=== PATIENT | male | born 1945 | race Caucasian/White ===

== ENCOUNTER 2017-10-16 12:33 | Outpatient (CLI) | payer MEDICARE, OTHER | END 2017-10-16 12:34 | disposition home or self-care (01) | LOC: DI 12:33 | PROVIDERS: ATTEND Internal Medicine | DX: C83.10 Mantle cell lymphoma, unspecified site (principal); I51.7 Cardiomegaly; I77.810 Thoracic aortic ectasia | CPT/HCPCS: 93306 ==

== ENCOUNTER 2019-07-17 01:03 | Emergency (ER) | payer MEDICARE, OTHER ==
--- NOTE | 2019-07-17 01:47 | ED Physician Documentation ---
PD HPI HEENT - Stated complaint Stated Complaint: BLOODY NOSE - Chief complaint Chief Complaint: Heent - History obtained from History obtained from: Patient - History of Present Illness Timing - onset: Enter time (22:00) Timing - details: Abrupt onset, Constant Pain level now: 0 Location: Nose Improves: Nothing Recently seen: Not recently seen - Additional information Additional information: atraumatic right nare epistaxis since 10 PM. not on blood thinners, denies h/o similar problem (has had nosebleeds before but not to extent of needing medical attention) Review of Systems Constitutional: reports: Reviewed and negative Nose: reports: Epistaxis. denies: Rhinorrhea / runny nose, Congestion, Sinus pressure / pain PD PAST MEDICAL HISTORY - Past Medical History Past Medical History: Yes Cardiovascular: Hypertension, Coronary artery disease, MD Respiratory: Sleep apnea, CPAP use Endocrine/Autoimmune: Type 2 diabetes GI: None : None HEENT: None Psych: None Musculoskeletal: Osteoarthritis - Past Surgical History General: Cholecystectomy, Colonoscopy, Other Cardiovascular: Coronary stent - Present Medications Home Medications: Ambulatory Orders Medication Instructions Recorded Confirmed Aspirin [Aspir 81] 82 mg PO DAILY 06/30/13 01/25/19 Atenolol 100 mg PO DAILY 06/30/13 01/25/19 Calcium Carbonate/Vitamin D3 1 each PO DAILY 06/30/13 01/25/19 [Caltrate-600 with Vit D Tab] Glucosa Arguello 2Kcl/Chondroitin Arguello 1 each PO BID 06/30/13 01/25/19 [Glucosamine & Chondroitin Cap] Losartan [Cozaar] 100 mg PO DAILY 06/30/13 01/25/19 Metformin HCl 1,000 mg PO BID 06/30/13 01/25/19 Simvastatin [Zocor] 40 mg PO QPM 06/30/13 01/25/19 Insulin NPH Human [NovoLIN N] 17 unit SUBQ QPM 11/18/17 01/25/19 Allopurinol 100 mg PO DAILY 01/25/19 01/25/19 Mecobalamin [B-12] 1 tab PO DAILY 01/25/19 01/25/19 Multivitamin [Multiple Vitamins] 1 tab PO DAILY 01/25/19 01/25/19 Morrill-3/Dha/Epa/Fish Oil [Morrill 3 1 cap PO DAILY 01/25/19 01/25/19 500 Softgel] Tumeric 1 tab PO DAILY 01/25/19 - Allergies Allergies/Adverse Reactions: Allergies Allergy/AdvReac Type Severity Reaction Status Date / Time codeine [Codeine] AdvReac Intermediate stiff neck Verified 07/17/19 01:15 codeine phosphate * AdvReac Unknown Verified 07/17/19 01:15 [From Robitussin A-C] guaifenesin AdvReac Unknown Verified 07/17/19 01:15 [From Robitussin A-C] - Social History Does the pt smoke?: No Smoking Status: Never smoker Does the pt drink ETOH?: Yes Does the pt have substance abuse?: No - Immunizations Immunizations are current?: Yes PD ED PE NORMAL - Vitals Vital signs reviewed: Yes - General General: Alert and oriented X 3, No acute distress, Well developed/nourished PD ED PE EXPANDED - HEENT HEENT: Right nares epsitaxis ( Slow, steady bleeding from a discrete 2mm diameter raised area of mucosa right anterior nasal septum ), Moist mucous membranes Results - Vitals Vitals: Oxygen O2 Source Room air Procedures - Epistaxis Site: Right Preparation: Clots removed, Afrin, Lidocaine Treatment: Silver Nitrate Other: Observed - no bleeding, Pt tolerated well PD MEDICAL DECISION MAKING - ED course Complexity details: considered differential, d/w patient ED course: bleeding persisted despite 20 minutes of nasal clamp pressure. hemostasis achieved with chemical cautery Departure - Departure Disposition: 01 Home, Self Care Clinical Impression: Epistaxis Condition: Good Instructions: ED Nosebleed Follow-Up: Rani Valencia PA-C [Primary Care Provider] - Discharge Date/Time: 07/17/19 03:00
[2019-07-17] MEDS ORDERED: OXYMETAZOLINE HCL 100 SPRAYS BOTTLE NAS STA (01:53)
[2019-07-17] MEDS ORDERED: LIDOCAINE VISCOUS 2% 15 ML UDC MM STA (01:54)
[2019-07-17 03:00] VITALS: BP 164/94
== END 2019-07-17 03:00 | disposition home or self-care (01) ==
LOC: ED 01:03
DX: R04.0 Epistaxis (principal); I10 Essential (primary) hypertension; E11.9 Type 2 diabetes mellitus without complications; Z79.4 Long term (current) use of insulin; Z79.82 Long term (current) use of aspirin
CPT/HCPCS: 30901; 99282; A9270

== ENCOUNTER 2019-10-17 10:21 | Outpatient (CLI) | payer MEDICARE, OTHER ==
[2019-10-17] MEDS ORDERED: IOVERSOL 320 50 ML VIAL ONE (10:30)
[2019-10-17] MEDS ORDERED: IOVERSOL 320 100 ML VIAL IVP ONE ×2 (10:30→15:01)
[2019-10-17 11:34] LABS: CALCIUM 9.1 mg/dL (8.5-10.3)
[2019-10-17 11:37] LABS: ALBUMIN 3.1 g/dL (3.2-5.5); CREATININE 0.9 mg/dL (0.6-1.2)
[2019-10-17 11:42] LABS: ALBUMIN/GLOBULIN RATIO 0.8 (1.0-2.2); BILIRUBIN,TOTAL 0.9 mg/dL (0.2-1.0)
[2019-10-17] MEDS ORDERED: IOVERSOL 320 50 ML VIAL PO ONE (15:01)
--- NOTE | 2019-10-18 10:50 | CT Report ---
Reason: NUZHAT CELL CARCINOMA, NECK PAIN Procedure Date: 10/17/2019 Accession Number: [id number] / [id number] Procedure: CT - SOFT TISSUE NECK W CPT Code: Final Report FULL RESULT: CT SOFT TISSUE NECK WITH CONTRAST INDICATION: 74-year-old male. [place]uz[place] cell carcinoma. Neck pain. Left axillary lymphadenopathy. TECHNIQUE: 100 mL of Optiray 320 contrast were injected intravenously. The neck was scanned helically and the data was reconstructed into 2 mm axial images. In addition, sagittal and coronal re-formations have been generated. In accordance with CT protocol optimization, one or more of the following dose reduction techniques were utilized for this exam: automated exposure control, adjustment of mA and/or KV based on patient size, or use of iterative reconstructive technique. COMPARISON: 07/19/2019. FINDINGS: Postsurgical changes are again demonstrated in the left neck. There is absence of fat in the carotid space, deep to the sternocleidomastoid muscle suggesting previous neck dissection. The left submandibular gland is surgically absent. In addition, once again, no left internal jugular vein is identified in the upper and mid neck, suggesting that it was likely sacrificed at the time of prior surgery. A lymph node in the left axilla is again demonstrated, measuring about 1.55 x 1 cm, slightly increased from about 1.45 x 0.9 cm on the previous examination (see image 113 of series 2). No lymph nodes meeting the size criterion for malignancy are identified within the neck. The nasopharyngeal and oropharyngeal soft tissues are unremarkable. The oral tongue is obscured due to extensive beam hardening artifact from metal dental hardware. Grossly no mass is identified. No floor of mouth or tongue base lesion is demonstrated. There is paramedian displacement of both vocal folds, presumably related to phase of phonation or respiration. No laryngeal mass is identified. The imaged upper trachea is widely patent. Beam hardening artifact from the shoulders limits evaluation of the thyroid. However, there is no thyromegaly, and no dominant thyroid mass lesion is demonstrated. The right submandibular gland is small but homogeneous. The left parotid gland is small (suggesting probable previous parotidectomy). The right parotid gland is fatty replaced and unremarkable. The carotid and vertebral arteries are patent. The right internal jugular vein appears patent. For findings in the included upper chest, please refer to the report for the patient's chest CT performed at same visit but dictated separately. Degenerative changes are again demonstrated in the cervical spine. 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 The mid sagittal canal diameter is reduced to about 8.8 mm. This probably represents at least mild spinal stenosis. The regional bony structures are otherwise unremarkable. No lytic or destructive bone lesion is seen. The middle ear cavities and mastoid air cells are essentially clear. Mucosal thickening is seen in the inferior left maxillary sinus and in multiple ethmoid air cells. The imaged paranasal sinuses are otherwise clear. No mass is identified in either orbit. No obvious acute pathology is seen in the imaged brain. IMPRESSION: 1. A lymph node in the left axilla has shown mild interval increase in size when compared to the previous examination of 07/19/2019. 2. Otherwise stable appearance of the neck when compared with the study from July 2019. In particular, no pathologic lymphadenopathy has developed within the neck.
--- NOTE | 2019-10-18 12:52 | CT Report ---
Reason: NUZHAT CELL CA W/ LT AXILLARY LYMPHADENOPATHY Procedure Date: 10/17/2019 Accession Number: [id number] / [id number] Procedure: CT - CHEST W CPT Code: Final Report FULL RESULT: EXAM: CT CHEST EXAM DATE: 10/17/2019 11:44 AM. CLINICAL HISTORY: Nuzhat cell cancer with left axillary lymphadenopathy. Neck pain. Epigastric pain. COMPARISONS: CHEST W07/19/2019 12:17 PM ABDOMEN/PELVIS W07/15/2018 11:18 AM CHEST W01/18/2019 9:07 AM. TECHNIQUE: Routine helical CT imaging was performed through the chest. IV contrast: 100 mL of Optiray 320. Reconstructions: Coronal and sagittal. In accordance with CT protocol optimization, one or more of the following dose reduction techniques were utilized for this exam: automated exposure control, adjustment of mA and/or KV based on patient size, or use of iterative reconstructive technique. FINDINGS: Lungs/Pleura: No endobronchial obstruction. No pleural effusions. No pneumothorax. Right middle lobe, lingular and bilateral lower lobe scar/atelectasis. Mild bilateral bronchial dilatation particularly in the lower lobes. No pleural effusions or pneumothorax. Calcified nodule inferior right lower lobe again seen. Subpleural right lower lobe nodular measuring 4 mm on image 186, series 3, stable. No new nodules. Mediastinum: Heart is upper normal in size. Coronary artery calcified plaque. Small hiatal hernia. No enlarged mediastinal or hilar lymph nodes are identified. No inferior cervical adenopathy is evident. Bones: Degenerative changes of the thoracic spine. No acute osseous abnormalities. No bony lesions. Visualized Abdomen: Absent gallbladder. Prominent common bile duct again seen. Pancreatic tail volume loss again evident. Adrenals and included portions of the kidneys are unremarkable. Stomach is mild to moderately distended. Diverticula are seen in differing portions of the colon. Other: Surgical clips are seen in the left axilla. Low-attenuation collection is again seen measuring approximately 4.5 x 3.3 cm as before in the left atrial. In the left axilla there has been a slight increase in size of the largest lymph nodes seen best on axial image 17 series 2 now measuring approximately 11 x 8 mm, previously measured up to 8 x 6 mm, as well as the adjacent lymph node seen on image 17 series 2 and image 21 series 2 which measures 7 x 5 mm also slightly larger. IMPRESSION: 1. Left axillary low attenuation 4.5 cm collection, unchanged likely postoperative and may represent a seroma. 2. Slight increase in size of left axillary lymph nodes. The largest lymph node now measures approximately 11 x 8 mm. 3. No enlarged or new mediastinal or hilar lymph nodes. 4. Right lower lobe subpleural nodular opacity 4 mm, stable. No new parenchymal nodules. 5. Borderline cardiomegaly. Coronary atherosclerosis. RADIA
--- NOTE | 2019-10-18 13:04 | CT Report ---
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 CLINICAL HISTORY: [place] cell cancer w/left axillary lymphadenopathy. Neck pain. Epigastric pain. COMPARISONS: ABDOMEN/PELVIS W/ 07/15/2018 11:18 AM. ABDOMEN/PELVIS W/ 07/19/2019 12:17 PM. ABDOMEN/PELVIS W/ 01/18/2019 9:07 AM. TECHNIQUE: Routine helical CT imaging was performed through the abdomen and pelvis. IV contrast: OPTIRAY 320; 100 mL. Enteric contrast: Positive. Reconstructions: Coronal and sagittal. In accordance with CT protocol optimization, one or more of the following dose reduction techniques were utilized for this exam: automated exposure control, adjustment of mA and/or KV based on patient size, or use of iterative reconstructive technique. FINDINGS: Lung Bases: Right lower lung nodular opacity is stable. Basilar scar/atelectasis. Hiatal hernia again seen. Liver: No hepatic lesions. Mild prominence of the intrahepatic bile ducts, unchanged. Gallbladder/Bile Ducts: Status post cholecystectomy. Prominent common bile duct again seen, stable. Spleen: Normal. Pancreas: Mild focal volume loss of the pancreatic tail is again seen. No pancreatic ductal dilatation or peripancreatic edema. Adrenal Glands: Nodule medial right adrenal gland again seen measuring 1.4 x 1.1 cm, previously measured by my measurement 1.2 x 1 cm on 07/19/2019 and on 01/18/2019 1.4 x 1.2 cm. Overall size not significantly changed. Left adrenal gland is unremarkable. Kidneys: Kidneys enhance symmetrically. Bilateral renal lesions are seen, with the largest lesion arising from the lower pole of the left kidney measuring 3.7 cm. Lateral lower pole left renal heterogeneous lesion is seen measuring 1.8 x 1.5 cm and is similar in size compared to the prior studies, although the lesion remains indeterminate. No hydronephrosis or nephrolithiasis. Peritoneal Cavity/Bowel: Stomach is mildly distended and unremarkable. No small bowel obstruction or small bowel wall thickening. No free air. No omental masses. Cecum is in the right mid abdomen. Small volume of stool in the colon. Diverticula are seen largely in the mid distal colon. No diverticulitis. No free air. No free fluid. No enlarged retroperitoneal or mesenteric lymph nodes are identified. No intra-abdominal fluid collections. The appendix is well visualized and normal. Pelvic Organs: Urinary bladder is mildly distended and unremarkable. Prostate and seminal vesicles unremarkable. No pelvic adenopathy. Vasculature: Vascular calcifications. No aneurysm. Mesenteric vasculature is patent. Bones: Degenerative change in the lower thoracic and lumbar spine. Lumbar facet arthropathy. No osseous lesions. Degenerative changes of both hip joints. Other: None. IMPRESSION: 1. No hepatic lesions. 2. Status post cholecystectomy. Biliary prominence, unchanged. 3. Stable right adrenal nodule. 4. Renal cysts including a heterogeneous left renal 1.8 cm lesion without significant change in size or appearance. 5. No abdominal or pelvic adenopathy. 6. Colonic diverticulosis. No diverticulitis. No bowel obstruction. No bowel wall thickening. RADIA
== END 2019-10-17 10:22 | disposition home or self-care (01) ==
LOC: DI 10:21
PROVIDERS: ATTEND Physician Assistant Medical
DX: C4A.30 Merkel cell carcinoma of unspecified part of face (principal); R59.0 Localized enlarged lymph nodes; M54.2 Cervicalgia; R10.13 Epigastric pain; E27.9 Disorder of adrenal gland, unspecified; Q61.02 Congenital multiple renal cysts; N28.9 Disorder of kidney and ureter, unspecified; K57.30 Diverticulosis of large intestine without perforation or abscess without bleeding; Z90.49 Acquired absence of other specified parts of digestive tract; I51.7 Cardiomegaly; R91.1 Solitary pulmonary nodule
CPT/HCPCS: 36415; 70491; 71260; 74177; 80053; Q9967

== ENCOUNTER 2020-10-21 10:37 | Outpatient (CLI) | payer MEDICARE, OTHER ==
--- NOTE | 2020-10-21 12:34 | SLEEP CARE CONSULTATION ---
Information from patient questionnaire entered by Michaelle Neff. I have reviewed and concur with the information entered by Michaelle Neff. This document represents the service I personally performed and the decisions made by me, Yazmin Li MD, [facility]. History of Present Illness Service Date and Time: 10/21/2020 1037 Reason for Visit: New patient, Previously diagnosed sleep apnea (Extremely Severe - AHI - 102.6), sleep apnea on CPAP therapy (using [employer]), Re-establish care (last seen 01/2011) Chief Complaint: reports: Other (new machine and supplies) Date of Onset: 1999 Usual bedtime: 10 pm Time it takes to fall asleep: 3 hours Snores at night: No Observed to quit breathing while asleep: No Sleeps alone due to snoring: No Number of times waking at night: 3-4 Reasons for waking at night: reports: Bathroom Toss, Turn, or Twitch while sleeping: Yes Recalls having dreams: No Usually gets out of bed at: 10-11 am Feels refreshed in the morning: Yes Morning headache: No Sleepy or fatigued during the day: No Ever fallen asleep while driving: No Takes day naps: No Dreams during day naps: No Prior sleep studies: Yes Year and Where: 2001 - [facility] in [place], [place] Additional HPI information: I had the pleasure of seeing Mr. Chu for re-evaluation of his sleep apnea. He was diagnosed in April 2002 at [facility] in [place], [place]. He was diagnosed with extremely severe apnea with an AHI of 102.6 and was placed on CPAP at 9 cm H2O pressure. He had a manual CPAP/BiPAP titration study here in 2009 that showed pressure of 11 cmH2O to be optimal. He was last seen here in 2010. Since then, he has been using his CPAP regularly. He wears the ResMed Alas FX nasal pillows. He got a new Respironics DreamStation in 2016 from [employer] (not sure who ordered it for him). The compliance data show usage in 364 out of the past 365 nights, averaging 7.5 hours a night. The residual AHI is 9.1 and average time in large leak per day is 48 minutes a night. Leak is worse the past few months, most likely due to old equipment. He lost 60 lbs since I saw him last. - Parasomnia Symptoms Ever been unable to move upon waking from sleep: No Ever felt weak in the knees when startled or emotional: No Bothered by creepy, crawly, restless sensations in legs: No Problems with memory or concentration: No CPAP Compliance Data - Data Reviewed with Patient Average duration of nightly device use: 7 hr 48 min Compliance rate %: 95.6 (180 days) Current pressure setting (cmH2O): 11 Humidity settin Heated hose settin Average residual AHI: 8.9 Average large leak: 1 hr 18 min Subjective Initial Davidson Sleepiness Scale score: 1 (in 2009) Current Davidson Sleepiness Scale score: 0 Past Medical History Past Medical History: reports: Diabetes, Arthritis, Gout Social History The patient's occupation is a Retired. Patient is and lives in [place]. Have you smoked in the past 12 months: No Alcohol use: No Caffeine use: No Family History Family history of sleep disordered breathing: No Allergies and Home Medications Drug allergies reviewed: Yes Home medication list reviewed: Yes Review of Systems Weight loss over past 5 years: 60 Cardiovascular: reports: high blood pressure Respiratory: denies: shortness of breath, wheeze, sputum production, chronic cough, other Gastrointestinal: denies: heartburn, difficulty swallowing, nausea, vomitting, diarrhea, abdominal pain, other Urinary: denies: incontinence, frequency, urgency, impotence, other Neurological: denies: headaches, seizure, head trauma, disorientation, speech dysfunction, gait or balance problems, fainting or unconsciousness, other Psychiatric: denies: Attention Deficit Hyperactivity, anxiety, depression, mood disorder, claustrophobia, other Ear/Nose/Throat: reports: dry mouth/throat, wisdom teeth removed Musculoskeletal: reports: joint pain Physical Exam Vital signs obtained and entered by: To minimize the risk of COVID-19 exposure, detailed exam was not performed. Height: 5 ft 11 in Weight: 225 lb Weight change since last visit: -58 Body Mass Index: 31.4 BMI Classification: Obese Impression and Plan IMPRESSION: 1. Obstructive Sleep Apnea-Hypopnea Syndrome, very severe, previously diagnosed. He has had good treatment compliance despite not having had any new supplies for a while. The weight loss could have improved his sleep-disordered breathing. I recommend repeating the in-laboratory polysomnography to see if he still has the condition. In the meantime, I will order him more supplies. Also, because the residual AHI is slightly high, I will change his machine from a straight CPAP to autoCPAP set between 9 and 13 cmH2O. Plan: 1. Schedule an in-laboratory polysomnography or a home sleep apnea test (HSAT) 2. Set autoCPAP at 9 13 cmH2O. 3. Prescription made for supplies. 4. Attempt to lose more weight. 5. Return in 1 to 2 weeks after the test to discuss results. Visit Type: In Office Provider Statement: I spent 100% of the Face to Face Visit with the patient with greater than 50% spent counseling the patient and coordination of care.
== END 2020-10-21 10:38 | disposition home or self-care (01) ==
LOC: SC 10:37
PROVIDERS: ATTEND Internal Medicine Pulmonary Disease
DX: G47.33 Obstructive sleep apnea (adult) (pediatric) (principal); E66.9 Obesity, unspecified; Z68.31 Body mass index [BMI] 31.0-31.9, adult
CPT/HCPCS: 99202; G0463; 99212

== ENCOUNTER 2020-10-22 09:49 | Outpatient (CLI) | payer MEDICARE, OTHER | END 2020-10-22 09:50 | disposition home or self-care (01) | LOC: SC 09:49 | PROVIDERS: ATTEND Internal Medicine Pulmonary Disease | DX: G47.33 Obstructive sleep apnea (adult) (pediatric) (principal); R09.02 Hypoxemia | CPT/HCPCS: G0399 ×2; 95806 ==

== ENCOUNTER 2020-10-29 14:35 | Outpatient (CLI) | payer MEDICARE, OTHER ==
--- NOTE | 2020-10-29 15:25 | SLEEP CARE CONSULTATION ---
Information from patient questionnaire entered by Guillermina Garcia. I have reviewed and concur with the information entered by Guillermina Garcia. This document represents the service I personally performed and the decisions made by , Aurea Sepulveda ARNP. History of Present Illness Service Date and Time: 10/29/2020 1435 Initial Coram Sleepiness Scale score: 1 (in 2020) Current Coram Sleepiness Scale score: 0 Additional HPI information: ALFREDITO MCMANUS returns for follow up and results of the recently performed home sleep study. His home sleep study verified that he has moderate obstructive sleep apnea with an average AHI of 20.7 and lisa oxygen saturation of 85%. Patient is doing well with the change in pressure from his last appointment. He is using the CPAP for 7 hours 47 minutes on average, 86.7% of the time. His average residual AHI is 4.8. He states the pressure feels comfortable and he denies any issues with the mask or the pressure at this time. Sleep Study - Results Type of Sleep Study: Home sleep study Prior sleep studies: Yes Polysomnography/Home Sleep Study results: Physician Impression: The quality of the study is good. The length of the study is adequate (> 240 minutes). Please also see the tabulated and graphic data. 1. Obstructive Sleep Apnea-Hypopnea (ICD-10 G47.33), moderate, with an AHI of 20.7/hr and lisa SaO2 of 85%. During the study, the patient had 59 apneas (59 obstructive, 0 central, 0 mixed) and 106 hypopneas. The longest episode lasted 55.5 seconds. The respiratory events occurred more frequently during supine sleep (supine AHI was 28.0 and non-supine, 15.93). 2. Hypoxemia (ICD-10 R09.02), mild, with the lowest oxygen saturation of 85 % and 174.7 minutes with SaO2 under 90%. Baseline oxygen saturation was normal (Average oxygen saturation was 91%). Allergies and Home Medications Home medication list reviewed: Yes (no changes) Review of Systems Review of systems same as previous: Yes (no changes) Physical Exam Heart Rate: 63 O2 Saturation: 97 Height: 5 ft 11 in Weight: 231 lb Body Mass Index: 32.2 BMI Classification: Obese Impression and Plan 1. Obstructive Sleep Apnea-Hypopnea Syndrome, moderate, with lowest oxygen saturation of 85%. He has good compliance and good apnea control at his current settings. He states he has overall more restful sleep and good quality sleep on CPAP therapy. He has a previous diagnosis of very severe GABY with CPAP use and was retested due to weight loss. His test shows he still qualifies for CPAP therapy. Positive pressure therapy can continue to benefit his diabetes and gout. He is doing well with the pressure change and has no complaints. He may replace his machine in May and patient will probably follow up then to do this. Otherwise an annual follow up is fine. * Continue auto CPAP pressure at 9-13 cmH2O * Notify me if snoring with mask or feeling that the pressure is too much or too little * Attempt to lose weight * Call this office if any problems using CPAP * Return for follow up in 1 year, or sooner if concerns arise Counseling Topics: Weight loss health impact Visit Type: In Office Time Spent with Patient (minutes): 15 Provider Statement: I spent 100% of the Face to Face Visit with the patient with greater than 50% spent counseling the patient and coordination of care.
== END 2020-10-29 14:36 | disposition home or self-care (01) ==
LOC: SC 14:35
PROVIDERS: ATTEND Nurse Practitioner Family
DX: G47.33 Obstructive sleep apnea (adult) (pediatric) (principal); E66.9 Obesity, unspecified; Z68.32 Body mass index [BMI] 32.0-32.9, adult
CPT/HCPCS: 99212; G0463

== ENCOUNTER 2022-01-21 09:10 | Emergency (ER) | payer MEDICARE, OTHER ==
--- NOTE | 2022-01-21 09:33 | ED Physician Documentation ---
PD HPI CHEST PAIN - Stated complaint Stated Complaint: CHEST PX,SOA - Chief complaint Chief Complaint: Cardiac - History obtained from History obtained from: Patient - History of Present Illness Timing - onset: How many days ago (3-4) Timing - onset during: Sleep (he has noted mainly when lying flat, a feeling of dyspnea and chest heaviness. SOme dyspnea with walking around but is minimally active at baseline.) Timing - duration: Days Timing - details: Gradual onset, Still present Quality: Tightness Location: Substernal Radiation: No: Jaw, Neck, Back Improved by: Rest (sitting up) Worsened by: Position (lying flat) Associated symptoms: Shortness of air, Other (increased bilateral leg edema more than usual the past week.). No: Nausea, Vomiting, Feeling faint / dizzy Similar symptoms before: Has not had sx before Recently seen: Not recently seen Review of Systems Constitutional: denies: Fever, Chills Nose: denies: Rhinorrhea / runny nose, Congestion Throat: denies: Sore throat Cardiac: reports: Pedal edema. denies: Calf pain Respiratory: reports: Dyspnea. denies: Cough GI: denies: Abdominal Pain, Nausea, Vomiting, Diarrhea, Bloody / black stool Musculoskeletal: reports: Extremity swelling Neurologic: reports: Generalized weakness. denies: Focal weakness, Numbness PD PAST MEDICAL HISTORY - Past Medical History Past Medical History: Yes Cardiovascular: Hypertension, Coronary artery disease (with stent about 15 years ago), [place] Respiratory: Sleep apnea, CPAP use Endocrine/Autoimmune: Type 2 diabetes GI: None : None HEENT: None Psych: None Musculoskeletal: Osteoarthritis - Past Surgical History General: Cholecystectomy, Colonoscopy, Other Cardiovascular: Coronary stent - Present Medications Home Medications: Ambulatory Orders Medication Instructions Recorded Confirmed Atenolol 100 mg PO DAILY 06/30/13 01/21/22 Calcium Carbonate/Vitamin D3 1 each PO DAILY 06/30/13 01/21/22 [Caltrate-600 with Vit D Tab] Glucosa Arguello 2Kcl/Chondroitin Arguello 1 each PO BID 06/30/13 01/21/22 [Glucosamine & Chondroitin Cap] Losartan [Cozaar] 100 mg PO DAILY 06/30/13 01/21/22 Metformin HCl 1,000 mg PO BID 06/30/13 01/21/22 Simvastatin [Zocor] 40 mg PO QPM 06/30/13 01/21/22 Insulin NPH Human [NovoLIN N] 17 unit SUBQ QPM 11/18/17 01/21/22 Mecobalamin [B-12] 1 tab PO DAILY 01/25/19 01/21/22 Multivitamin [Multiple Vitamins] 1 tab PO DAILY 01/25/19 01/21/22 [place]-3/Dha/Epa/Fish Oil [[place] 3 1 cap PO DAILY 01/25/19 01/21/22 500 Softgel] allopurinoL [Allopurinol] 100 mg PO DAILY 01/25/19 01/21/22 Iron 65 Mg 65 mg PO DAILY 05/15/20 01/21/22 Furosemide [Lasix] 40 mg PO DAILY 10 Days #10 tablet 01/21/22 Magnesium Oxide [Mag Ox] 400 mg PO DAILY 14 Days #14 tablet 01/21/22 Oxybutynin [Ditropan] 5 mg PO BID 01/21/22 01/21/22 Potassium Citrate [Potassium 15 meq PO DAILY 14 Days #14 tab 01/21/22 Citrate ER] - Allergies Allergies/Adverse Reactions: Allergies Allergy/AdvReac Type Severity Reaction Status Date / Time codeine [Codeine] AdvReac Intermediate stiff neck Verified 01/21/22 09:30 codeine phosphate * AdvReac Unknown Verified 01/21/22 09:30 [From Robitussin A-C] guaifenesin AdvReac Unknown Verified 01/21/22 09:30 [From Robitussin A-C] - Social History Does the pt smoke?: No Smoking Status: Never smoker Does the pt drink ETOH?: Yes Does the pt have substance abuse?: No - Immunizations Immunizations are current?: Yes PD ED PE NORMAL - Vitals Vital signs reviewed: Yes - General General: Alert and oriented X 3, No acute distress, Well developed/nourished - HEENT HEENT: Pharynx benign - Neck Neck: Supple, no meningeal sign, No adenopathy - Cardiac Cardiac: RRR, No murmur - Respiratory Respiratory: No respiratory distress. No: Clear bilaterally (fine crackles at bases bilaterally. No coarse sounds nor wheezing. ) - Abdomen Abdomen: Normal bowel sounds, Soft, Non tender - Derm Derm: Normal color, Warm and dry - Extremities Extremities: No calf tenderness / cord, Other (1-2+ pitting edema in both lower legs, up to upper shins. ) - Neuro Neuro: Alert and oriented X 3, No motor deficit, Normal speech Results - Vitals Vitals: Vital Signs - 24 hr 01/21/22 01/21/22 01/21/22 09:26 10:06 10:32 Temperature 36.4 C L Heart Rate 69 62 65 Respiratory 26 H 24 26 H Rate Blood Pressure 181/116 H 173/109 H 166/115 H O2 Saturation 100 97 93 01/21/22 11:22 Temperature Heart Rate 62 Respiratory 27 H Rate Blood Pressure 172/106 H O2 Saturation 91 L Oxygen O2 Source Room air - EKG (time done) 09:28 Rate: Rate (enter#) (68) Rhythm: NSR [place]: LAD Intervals: LBBB Ischemia: Normal ST segments, Non specific changes - Labs Labs: Laboratory Tests 01/21/22 01/21/22 01/21/22 09:25 09:25 09:25 WBC 7.5 RBC 4.33 L Hgb 13.0 L Hct 42.4 MCV 97.9 H MCH 30.0 MCHC 30.7 L RDW 15.1 H Plt Count 164 MPV 10.1 Neut # (Auto) 5.7 Lymph # (Auto) 0.9 L [place] # (Auto) 0.7 Eos # (Auto) 0.2 Baso # (Auto) 0.1 Absolute Nucleated RBC 0.00 Nucleated RBC % 0.0 Sodium 143 Potassium 3.7 Chloride 105 Carbon Dioxide 27 Anion Gap 11.0 BUN 30 H Creatinine 1.5 H Estimated GFR (MDRD) 45 L Glucose 109 H POC Whole Bld Glucose Calcium 9.0 Magnesium Total Bilirubin 1.3 H AST 34 ALT 34 Alkaline Phosphatase 71 Troponin I High Sens 31.2 H* B-Natriuretic Peptide Total Protein 6.6 L Albumin 3.7 Globulin 2.9 Albumin/Globulin Ratio 1.3 Lipase 38 01/21/22 01/21/22 01/21/22 09:25 09:25 11:12 WBC RBC Hgb Hct MCV MCH MCHC RDW Plt Count MPV Neut # (Auto) Lymph # (Auto) [place] # (Auto) Eos # (Auto) Baso # (Auto) Absolute Nucleated RBC Nucleated RBC % Sodium Potassium Chloride Carbon Dioxide Anion Gap BUN Creatinine Estimated GFR (MDRD) Glucose POC Whole Bld Glucose Calcium Magnesium 1.4 L Total Bilirubin AST ALT Alkaline Phosphatase Troponin I High Sens 29.1 H* B-Natriuretic Peptide 3851 H Total Protein Albumin Globulin Albumin/Globulin Ratio Lipase 01/21/22 11:54 WBC RBC Hgb Hct MCV MCH MCHC RDW Plt Count MPV Neut # (Auto) Lymph # (Auto) [place] # (Auto) Eos # (Auto) Baso # (Auto) Absolute Nucleated RBC Nucleated RBC % Sodium Potassium Chloride Carbon Dioxide Anion Gap BUN Creatinine Estimated GFR (MDRD) Glucose POC Whole Bld Glucose 105 H Calcium Magnesium Total Bilirubin AST ALT Alkaline Phosphatase Troponin I High Sens B-Natriuretic Peptide Total Protein Albumin Globulin Albumin/Globulin Ratio Lipase - Rads (name of study) chest xray Radiology: Prelim report reviewed (enlarghed heart size. NO acute pulmonary process.), See rad report PD MEDICAL DECISION MAKING - ED course Complexity details: reviewed results, re-evaluated patient (BP still is somewhat elevated but not excessive. HE states his breathing feels improved. HAs had reasonable amount of response to diuretic, with urine out.DOes not appear to meet admission criteria. ), considered differential (seems likely CHF with known prior CAD. NO chest pain per se. Has leg edema, crackles at bases, and elevated BNP. ), d/w patient Departure - Departure Disposition: Home, Self Care Clinical Impression: Dyspnea Qualifiers: Dyspnea type: orthopnea Qualified Code(s): R06.01 - Orthopnea CHF (congestive heart failure) Qualifiers: Heart failure type: diastolic Heart failure chronicity: unspecified Qualified Code(s): I50.30 - Unspecified diastolic (congestive) heart failure Condition: Stable Record reviewed to determine appropriate education?: Yes Instructions: ED CHF General Follow-Up: Yonny Desai DO [Primary Care Provider] - Prescriptions: Furosemide [Lasix] 40 mg PO DAILY 10 Days #10 tablet Magnesium Oxide [Mag Ox] 400 mg PO DAILY 14 Days #14 tablet Potassium Citrate [Potassium Citrate ER] 15 meq PO DAILY 14 Days #14 tab Comments: It does look like you have extra fluid in your system (fluid overload or congestive heart failure). I think that accounts for your swelling in the legs as well as the trouble breathing laying down. No signs of heart attack causing this. I would treat this with the diuretic furosemide daily for the next 10 days and see how much better you are doing over the next few days. Your electrolytes were slightly off as well so I would add a magnesium and potassium supplement over the next 10 to 14 days. I would suggest following up with your primary care in the next week, call for an appointment. Recheck if not improved well over the next 2 to 3 days and return if worsening generally. Your primary care will want to recheck your electrolytes and kidney function somewhere in the next week to ensure they are doing okay. I sent your prescriptions to the [facility] pharmacy. Discharge Date/Time: 01/21/22 12:03
[2022-01-21 09:36] LABS: BASOPHILS # (AUTO) 0.1 10^3/uL (0.0-0.1); BASOPHILS % (AUTO) 0.8 %; EOSINOPHILS # (AUTO) 0.2 10^3/uL (0.0-0.7); EOSINOPHILS % (AUTO) 2.9 %; HCT - HEMATOCRIT 42.4 % (42.0-52.0); LYMPHOCYTES # (AUTO) 0.9 10^3/uL (1.5-3.5); LYMPHOCYTES % (AUTO) 11.9 %; MEAN CORPUSCULAR HGB CONC 30.7 g/dL (32.0-36.0); MEAN CORPUSCULAR VOLUME 97.9 fL (80.0-94.0); MEAN PLATELET VOLUME 10.1 fL (7.4-11.4); MONOCYTES # (AUTO) 0.7 10^3/uL (0.0-1.0); MONOCYTES % (AUTO) 8.8 %; NEUTROPHILS # (AUTO) 5.7 10^3/uL (1.5-6.6); NEUTROPHILS % (AUTO) 75.3 %; PLT - PLATELET COUNT 164 10^3/uL (130-450); RED BLOOD COUNT 4.33 10^6/uL (4.70-6.10); RED CELL DISTRIBUTION WIDTH 15.1 % (12.0-15.0); WHITE BLOOD COUNT 7.5 x10^3/uL (4.8-10.8)
[2022-01-21 09:55] LABS: ALBUMIN 3.7 g/dL (3.2-5.5); ALBUMIN/GLOBULIN RATIO 1.3 (1.0-2.2); BILIRUBIN,TOTAL 1.3 mg/dL (0.2-1.0); CREATININE 1.5 mg/dL (0.6-1.2); POTASSIUM 3.7 mmol/L (3.5-5.0); TOTAL PROTEIN 6.6 g/dL (6.7-8.2)
--- NOTE | 2022-01-21 09:56 | XRAY Report ---
PROCEDURE: Chest 1 View X-Ray INDICATIONS: Chest pain TECHNIQUE: One view of the chest was acquired. COMPARISON: CT chest 01/22/2020 FINDINGS: Surgical changes and devices: None. Lungs and pleura: No pleural effusions or pneumothorax. Lungs are clear. Mediastinum: Mediastinal contours appear normal. Heart size is enlarged. Bones and chest wall: No suspicious bony lesions. Overlying soft tissues appear unremarkable. IMPRESSION: No acute pulmonary process. Reviewed by: Charity Rodgers MD on 01/21/2022 9:54 AM PDT Approved by: Charity Rodgers MD on 01/21/2022 9:54 AM PDT Station ID: [id number]
[2022-01-21] MEDS ORDERED: FUROSEMIDE 40 MG/4 ML VIAL IVP STA ×2 (10:03→11:05)
[2022-01-21] MEDS ORDERED: POTASSIUM CHLORIDE 20 MEQ TABLET PO STA (10:04)
[2022-01-21] MEDS ORDERED: MAGNESIUM SULFATE 2 GRAM 2 GM/50 ML BAG IV ONE (10:04)
[2022-01-21] MEDS ORDERED: NITROGLYCERIN SL 0.4 MG TABLET SL STA (11:05)
[2022-01-21 11:24] VITALS: BP 172/106
== END 2022-01-21 12:03 | disposition home or self-care (01) ==
LOC: ED 09:10
DX: R06.01 Orthopnea (principal); I50.30 Unspecified diastolic (congestive) heart failure; I11.0 Hypertensive heart disease with heart failure; E11.9 Type 2 diabetes mellitus without complications; Z79.4 Long term (current) use of insulin
CPT/HCPCS: 36415; 71045; 80053; 83690; 83735; 83880; 84484; 85025; 93005; 96365; 96375; 96376; 99284; A9270

== ENCOUNTER 2022-07-23 12:49 | Outpatient (CLI) | payer MEDICARE, OTHER ==
[2022-07-23 13:02] LABS: BASOPHILS # (AUTO) 0.1 10^3/uL (0.0-0.1); BASOPHILS % (AUTO) 0.8 %; EOSINOPHILS # (AUTO) 0.4 10^3/uL (0.0-0.7); EOSINOPHILS % (AUTO) 4.4 %; HCT - HEMATOCRIT 42.2 % (42.0-52.0); HGB - HEMOGLOBIN 12.8 g/dL (14.0-18.0); LYMPHOCYTES # (AUTO) 0.8 10^3/uL (1.5-3.5); LYMPHOCYTES % (AUTO) 8.4 %; MEAN CORPUSCULAR HEMOGLOBIN 29.9 pg (27.0-31.0); MEAN CORPUSCULAR HGB CONC 30.3 g/dL (32.0-36.0); MEAN CORPUSCULAR VOLUME 98.6 fL (80.0-94.0); MEAN PLATELET VOLUME 9.2 fL (7.4-11.4); MONOCYTES # (AUTO) 0.7 10^3/uL (0.0-1.0); MONOCYTES % (AUTO) 7.1 %; NEUTROPHILS # (AUTO) 7.2 10^3/uL (1.5-6.6); PLT - PLATELET COUNT 170 10^3/uL (130-450); RED BLOOD COUNT 4.28 10^6/uL (4.70-6.10); RED CELL DISTRIBUTION WIDTH 15.2 % (12.0-15.0); WHITE BLOOD COUNT 9.1 x10^3/uL (4.8-10.8)
[2022-07-23 13:08] LABS: INR 1.1 (0.8-1.2); PT - PROTHROMBIN TIME 12.4 secs (9.9-12.6)
[2022-07-23 13:15] LABS: CALCIUM 9.6 mg/dL (8.5-10.3); CREATININE 1.2 mg/dL (0.6-1.2); POTASSIUM 4.4 mmol/L (3.5-5.0)
[2022-07-23 13:34] LABS: THYROID STIMULATING HORMONE 3.1 uIU/mL (0.34-5.60)
== END 2022-07-23 12:50 | disposition home or self-care (01) ==
LOC: LAB 12:49
PROVIDERS: ATTEND Internal Medicine Cardiovascular Disease
DX: I10 Essential (primary) hypertension (principal)
CPT/HCPCS: 36415; 80048; 84439; 84443; 85025; 85610

== ENCOUNTER 2022-12-07 10:15 | Outpatient (CLI) | payer MEDICARE, OTHER ==
[2022-12-07 11:20] LABS: CALCIUM 9.1 mg/dL (8.5-10.3); CREATININE 1.1 mg/dL (0.6-1.2)
[2022-12-09 14:08] LABS: KAPPA FREE LT CHAINS SERUM 65.3 mg/L (3.3-19.4); KAPPA/LAMBDA RATIO SERUM 1.57 (0.26-1.65); LAMBDA FREE LT CHAINS SERUM 41.6 mg/L (5.7-26.3)
[2022-12-09 17:08] LABS: ALBUMIN 3.1 g/dL (2.9-4.4); ALPHA-1-GLOBULIN 0.3 g/dL (0.0-0.4); BETA GLOBULIN 0.9 g/dL (0.7-1.3); GAMMA GLOBULIN 1.1 g/dL (0.4-1.8); GLOBULIN, TOTAL 3.2 g/dL (2.2-3.9); PROTEIN TOTAL 6.3 g/dL (6.0-8.5)
== END 2022-12-07 10:16 | disposition home or self-care (01) ==
LOC: LAB 10:15
PROVIDERS: ATTEND Internal Medicine Cardiovascular Disease
DX: I50.22 Chronic systolic (congestive) heart failure (principal)
CPT/HCPCS: 36415; 80048; 83521; 84155; 84165

== ENCOUNTER 2022-12-11 09:26 | Outpatient (CLI) | payer MEDICARE, OTHER ==
[2022-12-11 09:56] LABS: BILIRUBIN,URINE NEGATIVE (NEGATIVE); GLUCOSE, URINE (UA) NEGATIVE (NEGATIVE); KETONES,URINE (UA) NEGATIVE (NEGATIVE); LEUKOCYTE ESTERASE, URINE NEGATIVE (NEGATIVE); NITRITE,URINE NEGATIVE (NEGATIVE); OCCULT BLOOD,URINE NEGATIVE (NEGATIVE); PROTEIN,URINE 100 mg/dL (NEGATIVE); UROBILINOGEN,URINE 0.2 (NORMAL) E.U./dL (NORMAL)
[2022-12-11 10:03] LABS: CLARITY,URINE CLEAR (CLEAR)
[2022-12-11 10:07] LABS: CREATININE 1.1 mg/dL (0.6-1.2)
[2022-12-11 10:14] LABS: CALCIUM 9.2 mg/dL (8.5-10.3); POTASSIUM 3.9 mmol/L (3.5-5.0)
[2022-12-11 10:16] LABS: BACTERIA,URINE Few /HPF (None Seen); RBC,URINE 0-5 /HPF (0-5); SQUAMOUS EPITHELIAL CELL,UR FEW Squamous (<= Few); WBC,URINE 0-3 /HPF (0-3)
[2022-12-11 10:39] LABS: ESTIMATED AVERAGE GLUCOSE 137 mg/dL (70-100); HEMOGLOBIN A1c% 6.4 % (4.27-6.07)
--- NOTE | 2022-12-11 11:47 | XRAY Report ---
PROCEDURE: Hip w/Pelvis 2-3V LT INDICATIONS: LEFT HIP PAIN TECHNIQUE: AP pelvis with lateral view(s) of the left hip(s). COMPARISON: None. FINDINGS: Bones: No fractures or dislocations. Pelvic ring appears intact. No suspicious bony lesions. Mild nonuniform joint space narrowing. Osteophytic lipping of the acetabulum. Soft tissues: The visualized bowel gas pattern is normal. No suspicious soft tissue calcifications. IMPRESSION: Mild left hip osteoarthritis. Reviewed by: Marcos Kramer on 12/11/2022 11:46 AM [facility] Approved by: Marcos Kramer on 12/11/2022 11:46 AM [facility] Station ID: [id number]
== END 2022-12-11 09:27 | disposition home or self-care (01) ==
LOC: DI 09:26
PROVIDERS: ATTEND Internal Medicine
DX: M16.12 Unilateral primary osteoarthritis, left hip (principal); E86.0 Dehydration; E11.9 Type 2 diabetes mellitus without complications; E87.6 Hypokalemia
CPT/HCPCS: 36415; 80048; 81001; 83036; 87086

== ENCOUNTER 2023-01-20 09:05 | Outpatient (CLI) | payer MEDICARE, OTHER | END 2023-01-20 09:06 | disposition home or self-care (01) | LOC: DI 09:05 | PROVIDERS: ATTEND Internal Medicine Cardiovascular Disease | DX: I50.9 Heart failure, unspecified (principal); I51.7 Cardiomegaly; I34.0 Nonrheumatic mitral (valve) insufficiency; I49.3 Ventricular premature depolarization; I77.810 Thoracic aortic ectasia | CPT/HCPCS: 93306 ==

== ENCOUNTER 2023-07-15 09:08 | Outpatient (CLI) | payer MEDICARE, OTHER | END 2023-07-15 09:09 | disposition home or self-care (01) | LOC: DI 09:08 | PROVIDERS: ATTEND Internal Medicine Cardiovascular Disease | DX: I42.9 Cardiomyopathy, unspecified (principal); I08.0 Rheumatic disorders of both mitral and aortic valves | CPT/HCPCS: 93306 ==

== ENCOUNTER 2024-03-24 08:50 | Outpatient (CLI) | payer MEDICARE, OTHER ==
[2024-03-24 09:00] LABS: BASOPHILS # (AUTO) 0.1 10^3/uL (0.0-0.1); BASOPHILS % (AUTO) 0.9 %; EOSINOPHILS # (AUTO) 0.3 10^3/uL (0.0-0.7); EOSINOPHILS % (AUTO) 4.3 %; HCT - HEMATOCRIT 40.3 % (42.0-52.0); HGB - HEMOGLOBIN 12.7 g/dL (14.0-18.0); LYMPHOCYTES % (AUTO) 13.3 %; MEAN CORPUSCULAR HEMOGLOBIN 31.7 pg (27.0-31.0); MEAN CORPUSCULAR HGB CONC 31.5 g/dL (32.0-36.0); MEAN CORPUSCULAR VOLUME 100.5 fL (80.0-94.0); MEAN PLATELET VOLUME 9.4 fL (7.4-11.4); MONOCYTES # (AUTO) 0.6 10^3/uL (0.0-1.0); MONOCYTES % (AUTO) 8.2 %; NEUTROPHILS # (AUTO) 5.6 10^3/uL (1.5-6.6); PLT - PLATELET COUNT 153 10^3/uL (130-450); RED BLOOD COUNT 4.01 10^6/uL (4.70-6.10); RED CELL DISTRIBUTION WIDTH 13.8 % (12.0-15.0); WHITE BLOOD COUNT 7.7 x10^3/uL (4.8-10.8)
[2024-03-24 09:18] LABS: ALBUMIN 3.7 g/dL (3.2-5.5); ALBUMIN/GLOBULIN RATIO 1.3 (1.0-2.2); ALKALINE PHOSPHATASE 96 IU/L (42-121); ALT ALANINE AMINOTRANSFERASE 14 IU/L (10-60); AST ASPARTATE AMINOTRANSFERASE 19 IU/L (10-42); BILIRUBIN,TOTAL 0.8 mg/dL (0.2-1.0); BUN - BLOOD UREA NITROGEN 26 mg/dL (6-20); CALCIUM 9.1 mg/dL (8.5-10.3); CARBON DIOXIDE - CO2 33 mmol/L (21-32); CHLORIDE 105 mmol/L (101-111); CHOLESTEROL 89 mg/dL; CREATININE 1.2 mg/dL (0.6-1.3); GFR - MDRD 58 (>89); GLUCOSE 137 mg/dL (74-104); HDL CHOLESTEROL 45 mg/dL; LDL CHOLESTEROL,CALCULATED 35 mg/dL; LDL/HDL RATIO 0.8 (<3.6); POTASSIUM 4.4 mmol/L (3.5-4.5); SODIUM 141 mmol/L (135-145); TOTAL PROTEIN 6.5 g/dL (6.4-8.9); TRIGLYCERIDES 44 mg/dL (48-352); URIC ACID 5.9 mg/dL (4.4-7.6); VLDL CHOLESTEROL 9 mg/dL
[2024-03-24 09:25] LABS: CREATININE,URINE 141.8 mg/dL
[2024-03-24 09:29] LABS: THYROID STIMULATING HORMONE 2.53 uIU/mL (0.34-5.60)
[2024-03-24 09:36] LABS: MICROALBUM/CREATININE RATIO,UR 407.6 ug/mg (<30.0); MICROALBUMIN,URINE 57.8 mg/dL
[2024-03-24 12:46] LABS: ESTIMATED AVERAGE GLUCOSE 146 mg/dL (70-100); HEMOGLOBIN A1c% 6.7 % (4.27-6.07)
== END 2024-03-24 08:51 | disposition home or self-care (01) ==
LOC: LAB 08:50
PROVIDERS: ATTEND Internal Medicine
DX: Z00.00 Encounter for general adult medical examination without abnormal findings (principal); M25.50 Pain in unspecified joint; C80.1 Malignant (primary) neoplasm, unspecified; I13.0 Hypertensive heart and chronic kidney disease with heart failure and stage 1 through stage 4 chronic kidney disease, or unspecified chronic kidney disease; E11.22 Type 2 diabetes mellitus with diabetic chronic kidney disease; I50.9 Heart failure, unspecified; N18.9 Chronic kidney disease, unspecified; E78.5 Hyperlipidemia, unspecified; M10.9 Gout, unspecified; D53.9 Nutritional anemia, unspecified; G47.33 Obstructive sleep apnea (adult) (pediatric); J30.2 Other seasonal allergic rhinitis; Z79.899 Other long term (current) drug therapy
CPT/HCPCS: 36415; 80053; 80061; 82043; 82570; 83036; 83721; 84443; 84550; 85025